=== PATIENT | female | born 1975 | race Caucasian/White ===

== ENCOUNTER 2018-03-26 10:37 | Day surgery (SDC) | payer OTHER, SELFPAY ==
[2018-03-26] VITALS (9 sets, daily range): BP systolic 81–114; BP diastolic 48–67; PULSE 52–70; RESP 12–18; TEMP 36.4–36.9; O2SAT 92–100; BMI 25.7
[2018-03-26 12:12] LABS: Thyroid Stim Hormone (TSH) 2.39 uIU/mL (0.358-3.74)
--- NOTE | 2018-03-26 13:00 | GALL_PTH ---
PATIENT: JESSICA MONAHAN LOC: [facility] – [place] U#:[id number] AGE/SX: 42/F ROOM: RE03/26/[address]: Dr. Murray Draper MD : 1975 BED: DIS: 03/26/2018 SPEC #: [id number] RECD: 03/27/18 10:20 STATUS: ADEN TWIN #: [id number] PHYLLIS: 03/26/18 13:[address]: Murray Draper DEPT: SURGICAL PATHOLOGY RECD BY: Daryl Robles ENTERED: 03/27/18 11:21 SP TYPE: COLE MANSFIELD DR: Cassandra Moran PA-C Tissues: Gallbladder, NOS Procedures: Surgery Specimen Level III HEADER OPERATION: Laparoscopic cholecystectomy with IOC PRE-OP DIAGNOSIS: Sludge in gallbladder TISSUE SUBMITTED: Gallbladder and contents MICROSCOPIC DIAGNOSIS Gallbladder and contents: Mild chronic cholecystitis. No stones are identified in the container or in the gallbladder. SJ:zachary 03/30/18 MICROSCOPIC DESCRIPTION Slides are reviewed. GROSS DESCRIPTION Received is one container labeled with the patient's name and designated gallbladder. The specimen consists of a gallbladder measuring 6 x 3 x 3 cm. The external surface is smooth and glistening. Focally, it is granular, hemorrhagic and contains cautery artifact. The lumen of the gallbladder contains green mucoid bile and no calculi. The mucosa is bile-stained and without any mass lesions. The gallbladder wall averages 0.1 cm in thickness and is free of mass lesions. Oil Deliverer sections of the gallbladder and the cystic duct are submitted in one cassette. / AM:zachary 03/27/18 TC:3 CPT: 91215
[2018-03-26] MEDS: Bupivacaine 0.25% 30 ML Vial (14:00)
--- NOTE | 2018-03-26 14:04 | PCM.OPRPT ---
Problem List (1) Biliary sludge Status: Acute (2) Biliary colic Status: Acute Report of Operation Date of Procedure: 03/26/18 Pre-Operative Diagnosis: Right upper quadrant pain and biliary sludge Post-Operative Diagnosis: Same Surgery/Procedure Performed:: Laparoscopic cholecystectomy with intraoperative cholangiogram Specimen's removed: Gallbladder and contents Description of Procedure: After obtaining informed consent patient was brought back to the operating room. General anesthesia was induced. The abdomen was prepped and draped in usual sterile fashion. A small midline incision was made superior to the umbilicus and deepened to the level of fascia. The fascia was elevated and incised. Next the peritoneum was elevated and incised in the same fashion. Finger sweep was performed and the Chamberlain trocar was placed into the abdomen. The balloon was inflated. The abdomen was inflated to 15 mmHg. Next a camera was introduced into the abdomen and the abdomen was inspected. Next under direct visualization three 5-mm ports were placed one subxiphoid and 2 subcostal. Next the gallbladder was elevated and retracted toward the right shoulder. The peritoneum was stripped from the gallbladder. The infundibulum was located and retracted laterally. Next the triangle of Calot was dissected and the cystic duct and cystic artery were identified. Cholangiograms were performed. The Shankar catheter was used to clamp across the infundibulum and the needle was inserted into the gallbladder. Under fluoroscopy contrast was instilled into the gallbladder and the common duct, cystic duct as well as proximal hepatic ducts were identified. There was good filling of the duodenum. There were no filling defects noted in the common bile duct. The clamp was removed as well as the needle and the infundibulum was grasped once more. Three hemolock clips were placed across the cystic duct. The cystic duct was then divided leaving 2 clips on the stump. The cystic artery was clipped and divided in the same fashion. The hook cautery was then used to take the gallbladder off of the gallbladder bed. Hemostasis was obtained. Gallbladder fossa was irrigated and no active bleeding or bile leakage was noted. Next the camera switched to a 5 mm camera and introduced in the subxiphoid port. An Endopouch bag was placed through the umbilical port and the gallbladder was placed into it. The gallbladder was then removed through the umbilical incision. The camera was then reinserted through the umbilical port. The gallbladder fossa was inspected once more and noted to be hemostatic with no leaking bile. The abdomen was suctioned dry the 5 mm ports were removed under direct visualization. The umbilical port was then removed and the air was removed from the abdomen. Next using an 0 Vicryl suture the umbilical fascia was closed in a [id number] fashion. The umbilical port site was irrigated local anesthetic was administered to all the incisions. All the incisions were closed subcuticular 4-0 Monocryl sutures followed by Steri-Strips and dressings. The patient was awoken and taken to PACU in stable condition. - Admit VTE Documentation VTE Mechan Device Prophylaxis: SCD's
--- NOTE | 2018-03-26 14:07 | PCM.DC.GB ---
Discharge Diet: Light diet - advance as tolerated Discharge Activity: Return to Normal Activity, May Not Drive - for 2-3 days or while taking narcotic pain medicataions., - - Do not drive, work heavy equipment or sign legal documents for 24 hours. May shower in (days): 1 - with the bandage in place. Lifting Restrictions: 20 lbs for 2 weeks Additional Activity Instructions:: Pain medication may cause nausea. You should typically eat light foods as you take your pain medications. Pain medication may also cause constipation. If this is a problem for you, please discuss with your doctor. Call your doctor if your incision/area has: Continuous Slow Oozing, Sudden Increased Bleeding, Increased Pain/ Swelling, Increased Redness, Foul Smelling Discharge, Fever of 101 or Higher Call your doctor if you observe: Fever of 101 or Higher Suture Line Care: Avoid Pulling/Pushing, Avoid Pinching/Bending Additional Dressing/Incision Instructions:: Leave operative bandaids on for 2 days. When you remove dressing, leave Steri-Strips on until your follow-up appointment, or until the Steri-Strips fall off on their own. Allergies/Adverse Reactions: Allergies No Known Allergies Allergy (Verified 03/23/18 08:44) Medications to take at Discharge levothyroxine 50 mcg tablet 50 mcg PO QDAY 03/23/18 lubiprostone 24 mcg capsule 24 mcg PO BID 03/23/18 ranitidine 150 mg capsule 150 mg PO QDAY PRN 03/23/18 Oxycodone HCl/Acetaminophen [Percocet 5/325] 1 - 2 tablet PO Q4H PRN PRN 7 Days #20 tablet 03/26/18 The following prescriptions were given: Oxycodone HCl/Acetaminophen [Percocet 5/325] 1 - 2 tablet PO Q4H PRN PRN 7 Days #20 tablet PRN Reason: Pain Primary Care Physician: Cassandra Moran PA-C [Primary Care Provider] - Test Results: Test results from this visit will be discussed in further detail at your follow-up appointment, if applicable. Please Follow Up With: Murray Draper MD When: Please call to schedule 2 week follow up appointment. [phone]
[2018-03-26] MEDS: Ketorolac 30 MG/ML Syringe IV (16:05)
== END 2018-03-26 17:38 | disposition home or self-care (01) ==
LOC: SDC 10:41 → AC 10:42
PROVIDERS: Family Provider Family Medicine; PCP Family Medicine; Visit Provider Surgery
PROC: (CPT 47610; principal; 2018-03-26 12:40)
DX: K81.1 Chronic cholecystitis (principal); E03.9 Hypothyroidism, unspecified; K21.9 Gastro-esophageal reflux disease without esophagitis; Z86.2 Personal history of diseases of the blood and blood-forming organs and certain disorders involving the immune mechanism; Z79.899 Other long term (current) drug therapy
CPT/HCPCS: 47563; 74300; 76000; 84443; 88304; 93005; J7120; J2405

== ENCOUNTER → 2019-04-28 | Outpatient (CLI) | payer OTHER, SELFPAY ==
--- NOTE | 2019-04-28 08:35 | RAD_ITS ---
STUDY: X-RAY - ESOPHAGUS (BARIUM SWALLOW) WITH FLUOROSCOPY REASON FOR EXAM: Female, 43 years old. Atypical chest pain and back pain. TECHNIQUE: 15 view(s) of the esophagus were obtained following swallowing of barium. FLUOROSCOPY TIME (if supplied): (0:30) minutes/seconds COMPARISON: None. FINDINGS: There is no demonstrated esophageal foreign body. There is no demonstrated stricture or mucosal abnormality. Normal gastroesophageal junction, without a demonstrated hiatal hernia. The patient ingested a 12 mm tablet of barium without any difficulty. Normal visualized aortic arch and descending thoracic aorta. Normal visualized pulmonary parenchyma. Prior Vaughan polina fixation of the thoracic and lumbar vertebrae. RAD/Esophagus Only IMPRESSION: Normal plain film x-ray examination (barium swallow) of the esophagus. Electronically Signed: Manuel Madison, at 14:40 EDT , Service support ,
== END | disposition home or self-care (01) ==
LOC: RAD 08:22
PROVIDERS: Family Provider Family Medicine; PCP Family Medicine; Referring Provider Family Medicine; Visit Provider Family Medicine
DX: K21.9 Gastro-esophageal reflux disease without esophagitis (principal); R07.89 Other chest pain
CPT/HCPCS: 74220

== ENCOUNTER → 2020-11-22 | Outpatient (CLI) | payer OTHER, SELFPAY | END | disposition home or self-care (01) | LOC: LABSPEC 14:00 | PROVIDERS: PCP Family Medicine; Referring Provider Otolaryngology; Visit Provider Otolaryngology | DX: Z11.52 Encounter for screening for COVID-19 (principal) | CPT/HCPCS: 87635; C9803; U0002 ==

== ENCOUNTER → 2020-11-30 08:17 | Outpatient (CLI) | payer OTHER, SELFPAY ==
--- NOTE | 2020-11-30 08:20 | BI_ITS ---
MAMMOGRAPHY - BILATERAL SCREENING REASON FOR EXAM: Female, 45 years old. Routine annual screening examination. PERTINENT HISTORY: Non-contributory. TECHNIQUE: Digital bilateral breast raymon (3D mammographic acquisition) in the CC and MLO projections. 2-D mediolateral oblique (MLO) and craniocaudad (CC) views of both breasts were obtained. CAD: Full Field Digital Mammography with Computer Added Detection was performed. COMPARISON: Comparison is made with prior examination dated 05/15/2017. FINDINGS: Breast Composition: The breasts are extremely dense, which lowers the sensitivity of mammography. There is a 1.1 cm x 1.5 cm well-defined nodule in the inferior central aspect of the right breast. Correlation with ultrasound is recommended. No other significant abnormalities are identified. BI/SCRN MAMM (CAD)W/RAYMON BILAT IMPRESSION: 1.5 cm x 1.1 cm nodular density in the inferior deep central portion of the right breast as described. Correlation with ultrasound is recommended. ASSESSMENT CATEGORY: BIRADS Category 0: Incomplete. Need additional imaging evaluation. A letter regarding these results will be sent to the patient by the facility within 30 days. Approximately 10% of breast cancers are not detected by mammography. A normal mammogram should not delay biopsy of a clinically suspicious abnormality. [id number] Electronically Signed: Manuel Madison MD at 10:40 EDT , Service support ,
== END ==
PROVIDERS: PCP Family Medicine; Referring Provider Family Medicine; Visit Provider Family Medicine
DX: Z12.31 Encounter for screening mammogram for malignant neoplasm of breast (principal)
CPT/HCPCS: 77063; 77067

== ENCOUNTER → 2020-12-01 07:52 | Outpatient (CLI) | payer OTHER, SELFPAY ==
--- NOTE | 2020-12-01 07:54 | US_ITS ---
STUDY: ULTRASOUND BREAST - RIGHT REASON FOR EXAM: Female, 45 years old. Abnormal screening mammogram. TECHNIQUE: Axial and longitudinal images of the RIGHT breast were performed with a high resolution ultrasound transducer. # OF IMAGES: 19 COMPARISON: Comparison is made with prior mammogram dated 11/30/2020. FINDINGS: RIGHT Breast: The mammographic abnormality corresponds to a 1.6 cm x 1.9 cm x 1.1 cm heterogeneous density of varying echogenicity. A biopsy is recommended. The nodule is located at the 6 o''clock position of the breast at 3 cm from nipple. US/Breast Limited Unilateral IMPRESSION: The mammographic abnormality corresponds to a 1.6 cm x 1.9 cm x 1.1 cm heterogeneous density at the 6 o''clock position breast at 3 cm from nipple. A biopsy recommended. ASSESSMENT CATEGORY: BIRADS Category 4: Suspicious - Biopsy Should Be Considered. A letter regarding these results will be sent to the patient by the facility within 30 days. Electronically Signed: Manuel Madison MD at 9:03 EDT , Service support ,
== END ==
PROVIDERS: PCP Family Medicine; Referring Provider Family Medicine; Visit Provider Family Medicine
DX: N63.10 Unspecified lump in the right breast, unspecified quadrant (principal)
CPT/HCPCS: 76642

== ENCOUNTER → 2020-12-06 | Outpatient (CLI) | payer OTHER, SELFPAY ==
[2020-12-06 14:53] VITALS: BMI 26.6
--- NOTE | 2020-12-06 15:45 | BRBX_PTH ---
PATIENT: JESSICA MONAHAN LOC: [facility] U#:[id number] AGE/SX: 45/F ROOM: RE12/06/[address]: Dr. Murray Draper MD : 1975 BED: DIS: 12/06/2020 SPEC #: [id number] RECD: 12/07/20 06:57 STATUS: ADEN REKaden #: [id number] PHYLLIS: 12/06/20 15:[address]: Murray Draper DEPT: SURGICAL PATHOLOGY RECD BY: Nimco Rob Tissues: Breast, NOS Procedures: Surgery Specimen Level IV HEADER OPERATION: Ultrasound-guided needle core biopsy right breast PRE-OP DIAGNOSIS: Abnormal right breast mammogram TISSUE SUBMITTED: Right breast tissue MICROSCOPIC DIAGNOSIS Right breast, ultrasound-guided core biopsy: Fragments of benign breast tissue with focal dense fibrosis. Negative for atypia or malignancy. See comment. KATHLEEN:zachary 12/08/2020 COMMENT Correlation with clinical, radiologic findings and appropriate follow up are necessary. MICROSCOPIC DESCRIPTION Slides are reviewed. GROSS DESCRIPTION Received in fixative is one container labeled with the patient name and designated right breast. The specimen consists of multiple elongated fragments of rosario-yellow fibroadipose tissue that in aggregate measure 1.5 x 0.7 x 0.1 cm. The entire specimen is submitted in one cassette. / SJ:zachary 12/07/20 TC:5 CPT: 36491
== END | disposition home or self-care (01) ==
PROVIDERS: Visit Provider Surgery
DX: R92.8 Other abnormal and inconclusive findings on diagnostic imaging of breast (principal)
CPT/HCPCS: 88305

== ENCOUNTER → 2022-03-21 | Outpatient (CLI) | payer OTHER, SELFPAY ==
--- NOTE | 2022-03-21 10:12 | BI_ITS ---
MAMMOGRAPHY - BILATERAL SCREENING REASON FOR EXAM: Female, 46 years old. Routine annual screening examination. PERTINENT HISTORY: Non-contributory. Prior right ultrasound guided breast biopsy. TECHNIQUE: Digital bilateral breast raymon (3D mammographic acquisition) in the CC and MLO projections. 2-D mediolateral oblique (MLO) and craniocaudad (CC) views of both breasts were obtained. CAD: Full Field Digital Mammography with Computer Added Detection was performed. COMPARISON: Comparison is made with prior study dated 11/30/2020 and 05/15/2017. FINDINGS: Breast Composition: The breasts are extremely dense, which lowers the sensitivity of mammography. Stable 1.1 sign 1.5 cm nodular density in the inferior central aspect of the right breast. A tissue clip marker is seen within. No other significant abnormalities are identified. There has been no significant change since the prior study. BI/SCRN MAMM (CAD)W/RAYMON BILAT IMPRESSION: Stable bilateral screening mammogram. Yearly follow-up mammogram recommended. (A) ASSESSMENT CATEGORY: BIRADS Category 2: Benign. A letter regarding these results will be sent to the patient by the facility within 30 days. Approximately 10% of breast cancers are not detected by mammography. A normal mammogram should not delay biopsy of a clinically suspicious abnormality. [id number] Electronically Signed: Manuel Madison MD at 11:20 EDT ,
== END | disposition home or self-care (01) ==
LOC: OPBI 10:09
PROVIDERS: PCP Family Medicine; Visit Provider Family Medicine
DX: Z12.31 Encounter for screening mammogram for malignant neoplasm of breast (principal)
CPT/HCPCS: 77063; 77067

== ENCOUNTER 2022-03-22 06:34 | Day surgery (SDC) | payer OTHER, SELFPAY ==
[2022-03-22] VITALS (9 sets, daily range): BP systolic 81–98; BP diastolic 44–51; PULSE 69–90; RESP 15–16; TEMP 36.2–36.7; O2SAT 93–100; BMI 25.7
--- NOTE | 2022-03-22 | ESO_PTH ---
PATIENT: JESSICA MONAHAN LOC: [facility] U#:[id number] AGE/SX: 46/F ROOM: RE03/22/[address]: Dr. Murray Draper MD : 1975 BED: DIS: 03/22/2022 SPEC #: [id number] RECD: 03/22/22 13:47 STATUS: ADEN REKaden #: [id number] PHYLLIS: 03/22/22 00:[address]: Murray Draper DEPT: SURGICAL PATHOLOGY RECD BY: Sean Barlow ENTERED: 03/22/22 13:47 SP TYPE: MISHA MANSFIELD DR: Cassandra Moran PA-C Tissues: A - Esophagus, NOS B - Descending colon C - Sigmoid colon biopsy Procedures: Surgery Specimen Level IV HEADER OPERATION: [place] [place] PRE-OP DIAGNOSIS: GERD, screening TISSUE SUBMITTED: A ? Mid esophagus biopsy for eosinophilic esophagitis, B ? Descending colon polyp at 50 cm, C ? Sigmoid polyp MICROSCOPIC DIAGNOSIS A ? Mid esophagus biopsy: A fragment of squamous epithelium, no pathologic diagnosis. See comment. B ? Descending colon polyp at 50 cm, biopsy: Tubular adenoma. C ? Sigmoid polyp, biopsy: Tubular adenoma. /SJ 03/22/2022 COMMENT Increased number of eosinophils consistent with eosinophilic esophagitis are not seen. MICROSCOPIC DESCRIPTION Slides are reviewed. GROSS DESCRIPTION A - Received in fixative is one container labeled with the patient's name and designated mid esophagus biopsy. The specimen consists of one irregular fragment of light rosario soft tissue that measures 0.3 x 0.3 x 0.1 cm. The specimen is totally submitted in one cassette. B - Received in fixative is one container labeled with the patient's name and designated descending colon polyp at 50 cm. The specimen consists of a rosario-pink polyp measuring 1.5 x 0.9 x 0.5 cm. The apparent base is inked. The specimen is bisected and submitted entirely in one cassette. C - Received in fixative is one container labeled with the patient's name and designated sigmoid polyp. The specimen consists of a rosario-pink polyp measuring 0.5 x 0.5 x 0.2 cm. Multiple minute fragments of rosario soft tissue mixed with fecal material are also noted. The specimen is totally submitted in one cassette. / KATHLEEN:zachary 03/22/2022 TC:1 CPT: 65207 x3
[2022-03-22] MEDS: Lactated Ringers 1,000 ML 15 ML IV (07:22)
--- NOTE | 2022-03-22 07:48 | HP.PCM_ITS ---
History and Physical Date of Admission: 03/22/22 Surgical History? History of laparoscopic cholecystectomy (~03/2018) History of myringoplasty History of spinal fusion History of total hysterectomy with bilateral salpingo-oophorectomy (BSO) Family History? Mother Hypertension Thyroid disorderFather Peptic ulcer Social History? Smoking Status:? Never smoker alcohol intake:? never substance use type:? does not use HPI HPI HPI: JESSICA MONAHAN, is a 46 F who presents to the office today for discussion of GERD and colonoscopy.? The patient has never had a screening colonoscopy and is nearing age 47 and would like this performed if it is possible. Patient also describes severe GERD especially if she stops her PPI.? She says this especially happens after eating or drinking.? She reports no nausea or vomiting.? She also says she is having some dysphagia. ROS General General: No weight change, appetite, fatigue, colon cancer, breast cancer or weakness HEENT HEENT: Yes difficulty swallowing; No eye injury, eye surgery, swollen glands or hoarseness Additional Details: At times with solid food Endo Endocrine: Yes thyroid disease; No diabetes mellitus, thyroid cancer, Hair loss, heat intolerance or cold intolerance Skin Skin: No rash or changing moles Musc Musculoskeletal: Yes back problems; No arthritis, rheumatoid arthritis, gout or joint pain Cardio Cardiovascular: No murmur, pacemaker, heart disease, atrial fibrillation, high blood pressure, heart attack, heart stent, palpitations, shortness of breat with exertion or chest pain Psych Psychiatric: No depression, anxiety or hearing voices Resp Respiratory: No shortness of breath, No sleep apnea, No cough, No COPD, No asthma, No emphysema and No wheezing Gastro Gastrointestinal: No abdominal pain, Yes nausea or vomiting, No diarrhea, No constipation, No blood in stool, Yes acid reflux, No hemorrhoids, No ulcers, No gallbladder problem and No black,tarry stools [place] Hematologic: No blood thinners, No blood disorders, No bleeding, No anemia and No blood clots Neuro Neurologic: No system reviewed and no additional complaints, except as documented, No as per HPI, No abnormal gait, No abnormal hearing, No abnormal movements, No abnormal speech, No behavioral changes, No burning sensations, No confusion, No convulsions, No disequilibrium, No dizziness, No localized weakness, No frequent falls, No headache(s), No lack of coordination, No loss of vision, No memory loss, No numbness, No other visual disturbances, No radicular pain, No restless legs, No sensory deficit, No syncope, No tingling, No tremor(s), No weakness and No other Exam Const General: cooperative Orientation: alert and oriented x3 HENUT Head: normal to inspection Neck Neck: normal visual inspection and full ROM Chest Chest palpation & inspection: normal inspection of the chest Resp Effort & Inspection: normal respiratory effort Auscultation: clear to auscultation bilaterally Cardio Rate: regular rate Rhythm: regular rhythm GI Inspection: non-distended Palpation: soft and nontender Skin General: no rashes or lesions noted Neuro General: patient alert and patient oriented x3 Extrem General: full ROM Psych Appearance: grossly normal Mental Status: mental status grossly normal Assessment and Plan Assessment and Plan (1) GERD (gastroesophageal reflux disease): ?Status:?Acute ?Qualifiers: ?Esophagitis presence:?esophagitis presence not specified? Qualified Code(s):?K21.9 - Gastro-esophageal reflux disease without esophagitis ?Plan - Dr. Murray Draper MD: The patient states she is having severe GERD.? She has been on a PPI for many years and if she stops that she does have worse GERD.? I discussed EGD and pH probe with her as well as Ganesh fundoplication and preoperative work-up including manometry.? I discussed possible dilation of any stricture due to esophagitis.? The patient is deciding how she would like to proceed and will either schedule an EGD with possible dilation or an EGD with pH probe and manometry. I also discussed colonoscopy with her.? I asked her to check with her insurance company to see if she is eligible for screening colonoscopy due to her age.? She will schedule colonoscopy at the same time as EGD if she is eligible. I explained endoscopy in detail to the patient.? I explained the risks including but not limited to stroke or heart attack with anesthesia, perforation of the GI tract, bleeding, infection.? I explained that any of these could necessitate further emergency surgery.? The patient understands and all questions were answered sufficiently.? The patient wishes to proceed with procedure. Murray Draper MD Pager: [facility] [address] [place] [address], [address] [place] [phone] Office: I have seen and examined and the patient. There are no changes. The patient would not like pH probe and reports that she changed to a keto diet and has had less problem with reflux. She still would like dilation if there is any stri cture.
--- NOTE | 2022-03-22 08:38 | OP.EGD_ITS ---
Patient Name: Bridgett Mabry Procedure Date: 03/22/2022 7:58 AM Date of : 1975 Age: 46 Procedure: Upper GI endoscopy Indications: Gastro-esophageal reflux disease Providers: Murray Draper MD Medicines: Monitored Anesthesia Care Patient Profile: This is a 46 year old female. Refer to note in patient chart for documentation of history and physical. Complications: No immediate complications. Procedure: Pre-Anesthesia Assessment: - Prior to the procedure, a History and Physical was performed, and patient medications and allergies were reviewed. The patient's tolerance of previous anesthesia was also reviewed. The risks and benefits of the procedure and the sedation options and risks were discussed with the patient. All questions were answered, and informed consent was obtained. Prior Anticoagulants: The patient has taken no previous anticoagulant or antiplatelet agents. After reviewing the risks and benefits, the patient was deemed in satisfactory condition to undergo the procedure. After obtaining informed consent, the endoscope was passed under direct vision. Throughout the procedure, the patient's blood pressure, pulse, and oxygen saturations were monitored continuously. The Endoscope was introduced through the mouth, and advanced to the third part of duodenum. The upper GI endoscopy was accomplished without difficulty. The patient tolerated the procedure well. Scope In: 8:06:45 AM Scope Out: 8:10:50 AM Total Procedure Duration Time 0 hours 4 minutes 5 seconds Findings: The esophagus was normal. The stomach was normal. The examined duodenum was normal. Biopsies were taken with a cold forceps in the middle third of the esophagus for histology. Impression: - Normal esophagus. - Normal stomach. - Normal examined duodenum. - Biopsies were taken with a cold forceps for histology in the middle third of the esophagus. Recommendation: - Discharge patient to home. - Resume previous diet. - Continue present medications. - Await pathology results. Procedure Code(s): --- Professional --- 07486, Esophagogastroduodenoscopy, flexible, transoral; with biopsy, single or multiple Diagnosis Code(s): --- Professional --- K21.9, Gastro-esophageal reflux disease without esophagitis CPT copyright 2017 [employer]. All rights reserved. The codes documented in this report are preliminary and upon field service engineer review may be revised to meet current compliance requirements. Murray Draper MD 03/22/2022 8:38:16 AM This report has been signed electronically. Number of Addenda: 0 Note Initiated On: 03/22/2022 7:58 AM
--- NOTE | 2022-03-22 08:38 | OP.CCLET_ITS ---
03/22/2022 [facility] Re : Upper GI endoscopy procedure for Bridgett Moran This procedure was performed on Tuesday, March 22, 2022. My impressions and recommendations are as follows: Impressions : - Normal esophagus. - Normal stomach. - Normal examined duodenum. - Biopsies were taken with a cold forceps for histology in the middle third of the esophagus. Recommendations : - Discharge patient to home. - Resume previous diet. - Continue present medications. - Await pathology results. My findings are described in the full procedure note, which is enclosed. If I can be of further assistance, please feel free to contact me at Doctor phone number(s): , Work: . Sincerely, Murray Draper MD 03/22/2022 8:38:16 AM This report has been signed electronically.
--- NOTE | 2022-03-22 08:41 | OP.COLON_ITS ---
Patient Name: Bridgett Mabry Procedure Date: 03/22/2022 8:12 AM Date of : 1975 Age: 46 Procedure: Colonoscopy Indications: Screening for colorectal malignant neoplasm Providers: Murray Draper MD Medicines: Monitored Anesthesia Care Patient Profile: This is a 46 year old female. Refer to note in patient chart for documentation of history and physical. Last Colonoscopy: none. The patient's first colonoscopy is today. Complications: No immediate complications. Procedure: Pre-Anesthesia Assessment: - Prior to the procedure, a History and Physical was performed, and patient medications and allergies were reviewed. The patient's tolerance of previous anesthesia was also reviewed. The risks and benefits of the procedure and the sedation options and risks were discussed with the patient. All questions were answered, and informed consent was obtained. Prior Anticoagulants: The patient has taken no previous anticoagulant or antiplatelet agents. After reviewing the risks and benefits, the patient was deemed in satisfactory condition to undergo the procedure. After I obtained informed consent, the scope was passed under direct vision. Throughout the procedure, the patient's blood pressure, pulse, and oxygen saturations were monitored continuously. The pediatric colonoscope was introduced through the anus and advanced to the cecum, identified by appendiceal orifice and ileocecal valve. The colonoscopy was performed without difficulty. The patient tolerated the procedure well. The quality of the bowel preparation was good. Scope In: 8:13:29 AM Scope Withdrawal Time 0 hours 5 minutes 16 seconds Scope Out: 8:32:28 AM Total Procedure Duration Time 0 hours 18 minutes 59 seconds Findings: Two pedunculated polyps were found in the sigmoid colon and descending colon. These polyps were removed with a hot snare. Resection and retrieval were complete. To prevent bleeding after the polypectomy, one hemostatic clip was successfully placed. There was no bleeding at the end of the procedure. The exam was otherwise without abnormality on direct and retroflexion views. Impression: - Two polyps in the sigmoid colon and in the descending colon, removed with a hot snare. Resected and retrieved. - The examination was otherwise normal on direct and retroflexion views. Recommendation: - Discharge patient to home. - Resume previous diet. - Continue present medications. - Await pathology results. - Repeat colonoscopy in 3 years for surveillance based on pathology results. Procedure Code(s): --- Professional --- 57309, 33, Colonoscopy, flexible; with removal of tumor(s), polyp(s), or other lesion(s) by snare technique Diagnosis Code(s): --- Professional --- Z12.11, Encounter for screening for malignant neoplasm of colon D12.5, Benign neoplasm of sigmoid colon D12.4, Benign neoplasm of descending colon CPT copyright 2017 [employer]. All rights reserved. The codes documented in this report are preliminary and upon electroplater apprentice review may be revised to meet current compliance requirements. Murray Draper MD 03/22/2022 8:40:45 AM This report has been signed electronically. Number of Addenda: 0 Note Initiated On: 03/22/2022 8:12 AM
--- NOTE | 2022-03-22 08:41 | OP.CCLET_ITS ---
03/22/2022 [facility] Re : Colonoscopy procedure for Bridgett Moran This procedure was performed on Tuesday, March 22, 2022. My impressions and recommendations are as follows: Impressions : - Two polyps in the sigmoid colon and in the descending colon, removed with a hot snare. Resected and retrieved. - The examination was otherwise normal on direct and retroflexion views. Recommendations : - Discharge patient to home. - Resume previous diet. - Continue present medications. - Await pathology results. - Repeat colonoscopy in 3 years for surveillance based on pathology results. My findings are described in the full procedure note, which is enclosed. If I can be of further assistance, please feel free to contact me at Doctor phone number(s): , Work: . Sincerely, Murray Draper MD 03/22/2022 8:40:45 AM This report has been signed electronically.
== END 2022-03-22 09:25 | disposition home or self-care (01) ==
LOC: EN 06:37 → AC 06:37
PROVIDERS: PCP Family Medicine; Referring Provider Family Medicine; Visit Provider Surgery
PROC: 0DJD8ZZ Inspection of Lower Intestinal Tract, Via Natural or Artificial Opening Endoscopic (ICD-10-PCS; CPT 45378; principal; 2022-03-22 07:55)
DX: D12.4 Benign neoplasm of descending colon (principal); D12.5 Benign neoplasm of sigmoid colon; K21.9 Gastro-esophageal reflux disease without esophagitis; E03.9 Hypothyroidism, unspecified; Z79.899 Other long term (current) drug therapy
CPT/HCPCS: 45385; 43239; 88305; J7120; J2405

== ENCOUNTER → 2023-03-26 | Outpatient (CLI) | payer OTHER, SELFPAY ==
--- NOTE | 2023-03-26 | BI_ITS ---
MAMMOGRAPHY - BILATERAL SCREENING REASON FOR EXAM: Female, 47 years old. Routine annual screening examination. PERTINENT HISTORY: Non-contributory. History of prior right ultrasound-guided breast biopsy. TECHNIQUE: Digital bilateral breast raymon (3D mammographic acquisition) in the CC and MLO projections. 2-D mediolateral oblique (MLO) and craniocaudad (CC) views of both breasts were obtained. CAD: Full Field Digital Mammography with Computer Added Detection was performed. COMPARISON: Comparison is made with prior study March 21, 2022 and November 30, 2020. FINDINGS: Breast Composition: The breasts are extremely dense, which lowers the sensitivity of mammography. Stable 1.1 cm x 1.5 cm well-defined nodule in the inferior slightly medial aspect of the right breast. A tissue clip marker is seen within the from prior biopsy. No other significant abnormalities are identified. There has been no significant change since the prior study. BI/SCRN MAMM (CAD)W/RAYMON BILAT IMPRESSION: Stable bilateral screening mammogram. Yearly follow-up mammogram recommended. (A) ASSESSMENT CATEGORY: BIRADS Category 2: Benign. A letter regarding these results will be sent to the patient by the facility within 30 days. Approximately 10% of breast cancers are not detected by mammography. A normal mammogram should not delay biopsy of a clinically suspicious abnormality. [id number] Electronically Signed: Manuel Madison MD at 8:09 EDT ,
== END | disposition home or self-care (01) ==
LOC: OPBI 15:30
PROVIDERS: PCP Family Medicine; Referring Provider Family Medicine; Visit Provider Family Medicine
DX: Z12.31 Encounter for screening mammogram for malignant neoplasm of breast (principal)
CPT/HCPCS: 77063; 77067

== ENCOUNTER → 2024-04-07 | Outpatient (CLI) | payer OTHER, SELFPAY ==
--- NOTE | 2024-04-07 09:45 | BI_ITS ---
MAMMOGRAPHY - BILATERAL SCREENING REASON FOR EXAM: Female, 48 years old. Routine annual screening examination. PERTINENT HISTORY: Non-contributory. History of prior right ultrasound-guided breast biopsy. TECHNIQUE: Digital bilateral breast raymon (3D mammographic acquisition) in the CC and MLO projections. 2-D mediolateral oblique (MLO) and craniocaudad (CC) views of both breasts were obtained. CAD: Full Field Digital Mammography with Computer Added Detection was performed. COMPARISON: Comparison is made with prior study March 26, 2023 and March 21, 2022. FINDINGS: Breast Composition: The breasts are extremely dense, which lowers the sensitivity of mammography. Stable 1.1 cm x 1.5 cm nodule in the inferior slightly medial aspect of the right breast. A tissue clip marker is once again seen within. No other significant abnormalities are identified. There has been no significant change since the prior study. BI/SCRN MAMM (CAD)W/RAYMON BILAT IMPRESSION: Stable bilateral screening mammogram. Yearly follow-up mammogram recommended. (A) ASSESSMENT CATEGORY: BIRADS Category 2: Benign. A letter regarding these results will be sent to the patient by the facility within 30 days. Approximately 10% of breast cancers are not detected by mammography. A normal mammogram should not delay biopsy of a clinically suspicious abnormality. [id number] Electronically Signed: Manuel Madison MD at 11:05 EDT ,
== END | disposition home or self-care (01) ==
LOC: OPBI 09:43
PROVIDERS: PCP Family Medicine; Referring Provider Family Medicine; Visit Provider Family Medicine
DX: Z12.31 Encounter for screening mammogram for malignant neoplasm of breast (principal)
CPT/HCPCS: 77063; 77067

== ENCOUNTER → 2025-04-14 | Outpatient (CLI) | payer OTHER, SELFPAY ==
--- NOTE | 2025-04-14 07:50 | BI_ITS ---
EXAM: SCRN MAMM (CAD)W/RAYMON BILAT DATE: 04/14/2025 CLINICAL HISTORY: F, Age 49 y/o , SCREENING No family history. History of prior right ultrasound-guided breast biopsy. TECHNIQUE: Procedure Code: [id number] Modality: MG Procedure: SCRN MAMM (CAD)W/RAYMON BILAT COMPARISON: Prior exam(s) dated April 07, 2024.. FINDINGS: TISSUE DENSITY: The breasts are extremely dense, which lowers the sensitivity of mammography. Bilateral Breast Mammographic Findings: No significant masses, calcifications or other abnormalities are identified. Once again, a tissue clip marker is seen within a 1.5 cm well-defined nodule in the inferior medial aspect of the right breast. No suspicious masses, areas of developing architectural distortion, or suspicious calcifications. There has been no significant interval change. BI/SCRN MAMM (CAD)W/RAYMON BILAT IMPRESSION: Stable screening bilateral mammogram. OVERALL FINAL ASSESSMENT BI-RADS 2: BENIGN RECOMMENDATION: Routine annual follow-up in 1 Year A letter with findings and recommendations will be mailed to the patient. Reading Location: [id number]
== END | disposition home or self-care (01) ==
LOC: OPBI 07:48
PROVIDERS: PCP Family Medicine; Referring Provider Family Medicine; Visit Provider Family Medicine
DX: Z12.31 Encounter for screening mammogram for malignant neoplasm of breast (principal)
CPT/HCPCS: 77063; 77067